=== PATIENT | female | born 1990 | race American Indian/Alaskan Native ===

== ENCOUNTER 2017-08-25 06:59 | Emergency (ER) | payer BC, MEDICAID, OTHER ==
[2017-08-25 06:59] VITALS: BMI 33.2
[2017-08-25 07:11] VITALS: BP 132/78; PULSE 84; RESP 16; TEMP 97.8; O2SAT 100
[2017-08-25] MEDS ORDERED: Sodium Chloride 0.9% 1,000 ML IV STA (08:39)
--- NOTE | 2017-08-25 08:52 | ED PDOC ---
HPI: Abdomen Time Seen by Provider: 08/25/17 08:07 Chief Complaint (Nursing): Abdominal Pain Chief Complaint (Provider): Abdominal Pain History Per: Patient History/Exam Limitations: no limitations Onset/Duration Of Symptoms: Days (2 weeks) Current Symptoms Are (Timing): Constant Associated Symptoms: Nausea, Vomiting. denies: Diarrhea, Constipation, Urinary Symptoms Additional Complaint(s): Patient is a 27 y/o female with a past medical history of acid reflux who presents to the ED complaining of constant abdominal pain for 2 weeks, with associated nausea and 4 episodes of non-bloody vomiting. Patient also reports feeling bloated and gassy, but denies any constipation, diarrhea, or genitourinary symptoms. PCP: luis miguel Past Medical History Reviewed: Historical Data, Nursing Documentation, Vital Signs Vital Signs: Last Vital Signs Temp 97.8 F 08/25/17 07:08 Pulse 84 08/25/17 07:08 Resp 16 08/25/17 07:08 BP 132/78 08/25/17 07:08 Pulse Ox 100 08/25/17 10:40 - Medical History PMH: Anemia, Asthma Denies: Chronic Kidney Disease Other PMH: Acid Reflux - Surgical History Surgical History: No Surg Hx - Family History Family History: States: Unknown Family Hx - Social History Current smoker - smoking cessation education provided: No Ex-Smoker (has not smoked in the last 12 months): No Alcohol: None Drugs: Denies - Immunization History Hx Tetanus Toxoid Vaccination: No Hx Influenza Vaccination: No Hx Pneumococcal Vaccination: No - Home Medications Home Medications: Ambulatory Orders Medication Instructions Recorded Ferrous Sulfate [Feosol] 325 mg PO TID #15 tab 08/25/17 Ondansetron ODT [Zofran ODT] 4 mg PO Q8H PRN #20 odt 08/25/17 - Allergies Allergies/Adverse Reactions: Allergies Allergy/AdvReac Type Severity Reaction Status Date / Time kiwi Allergy Verified 08/27/16 18:53 Review of Systems ROS Statement: Except As Marked, All Systems Reviewed And Found Negative Gastrointestinal: Positive for: Nausea, Vomiting, Abdominal Pain, Other (Bloated , gassy). Negative for: Diarrhea, Constipation Genitourinary Female: Negative for: Other (Genitourinary symptoms) Physical Exam - Reviewed Nursing Documentation Reviewed: Yes Vital Signs Reviewed: Yes - Physical Exam Appears: Positive for: No Acute Distress Head Exam: Positive for: ATRAUMATIC, NORMOCEPHALIC Skin: Positive for: Normal Color, Warm, Dry Eye Exam: Positive for: Normal appearance, EOMI, PERRL Neck: Positive for: Normal, Painless ROM, Supple Cardiovascular/Chest: Positive for: Regular Rate, Rhythm. Negative for: Murmur Respiratory: Positive for: Normal Breath Sounds. Negative for: Respiratory Distress Gastrointestinal/Abdominal: Positive for: Tenderness (Mild epigastric). Negative for: Guarding, Rebound Back: Positive for: Normal Inspection. Negative for: L CVA Tenderness, R CVA Tenderness, Vertebral Tenderness Extremity: Positive for: Normal ROM. Negative for: Pedal Edema, Deformity Neurologic/Psych: Positive for: Alert, Oriented (x3). Negative for: Motor/ Sensory Deficits - Laboratory Results Result Diagrams: 08/25/17 09:14 08/25/17 09:14 - ECG O2 Sat by Pulse Oximetry: 100 (RA) Pulse Ox Interpretation: Normal Medical Decision Making Medical Decision Makin:39 Initial Impression: Gastritis, Cholelithiasis Initial Plan: --CMP --Lipase Stat --ED Urine --ED Urine Dipstick --CBC --Sodium Chloride 0.9% IV 1,000 mls/hr --Ondasteron 4 mg IV Stat --Urinalysis --US Abdomen Limited (GB Included) 10:10 US Abdomen Limited Results FINDINGS: LIVER: Measures 15.4 cm in length and appears unremarkable. No focal hepatic mass identified. The main portal vein appears patent with normal directional flow. No intrahepatic bile duct dilatation. GALLBLADDER: No gallstones. No gallbladder wall thickening or pericholecystic edema. Negative sonographic Messina's sign as assessed by the roll tester. COMMON BILE DUCT: Measures 3 mm. PANCREAS: Not well-visualized. RIGHT KIDNEY: Measures 10.1 x 4.2 x 3.6 cm. No obstructing calculus or hydronephrosis identified. AORTA: Limited visualization appears grossly unremarkable. IVC: Limited visualization appears grossly unremarkable. OTHER FINDINGS: None . IMPRESSION: No acute findings identified. Scribe Attestation: Documented by Madhu Fisher, acting as a scribe for Symone Hernandez MD Provider Scribe Attestation: All medical record entries made by the Scribe were at my direction and personally dictated by me. I have reviewed the chart and agree that the record accurately reflects my personal performance of the history, physical exam, medical decision making, and the department course for this patient. I have also personally directed, reviewed, and agree with the discharge instructions and disposition. Disposition - Clinical Impression Clinical Impression: Gastritis, Anemia - Disposition Referrals: Federico CORTES,MD Julian [Medical Doctor] - Disposition: Routine/Home Disposition Time: 10:33 Condition: STABLE Prescriptions: Ferrous Sulfate [Feosol] 325 mg PO TID #15 tab Ondansetron ODT [Zofran ODT] 4 mg PO Q8H PRN #20 odt PRN Reason: Nausea/Vomiting Instructions: Gastritis (ED), Anemia (ED) Forms: [employer] (Romanian)
[2017-08-25 09:27] LABS: ALB/GLOB RATIO 1.1 (1.0-2.1); ALBUMIN 3.9 g/dL (3.5-5.0); ALT/SGPT 43 U/L (9-52); AST/SGOT 21 U/L (14-36); BLOOD UREA NITROGEN 14 mg/dl (7-17); CALCIUM 9.3 mg/dL (8.4-10.2); GFR AFRICAN-AMERICAN > 60; GFR NON-AFRICAN AMERICAN > 60; LIPASE 146 U/L (23-300)
[2017-08-25 09:28] LABS: BASO % 0.1 % (0.0-2.0); EOS % 0.4 % (0.0-4.0); HEMOGLOBIN 10.6 g/dL (12.0-16.0); LYMPH # 2.5 K/uL (1.0-4.3); LYMPH % 30.4 % (20.0-40.0); MEAN CELL VOLUME 67.5 fl (81.0-99.0); MEAN CORPUSCULAR HEMOGLOBIN 21.4 pg (27.0-31.0); MEAN CORPUSCULAR HGB CONC 31.7 g/dL (33.0-37.0); MEAN PLATELET VOLUME 8.4 fl (7.2-11.7); MONO # 0.8 K/uL (0.0-0.8); MONO % 9.6 % (0.0-10.0); NEUT # 4.8 K/uL (1.8-7.0); NEUT % 59.5 % (50.0-75.0); NRBC % 0.1 % (0.0-0.0); RBC 4.94 Mil/uL (3.80-5.20); RED CELL DISTRIBUTION WIDTH 16.5 % (11.5-14.5); WHITE BLOOD COUNT 8.1 K/uL (4.8-10.8)
--- NOTE | 2017-08-25 10:12 | US ---
HISTORY: Epigastric pain, vomiting COMPARISON: None available. TECHNIQUE: Sonographic evaluation of the right upper quadrant of the abdomen. FINDINGS: LIVER: Measures 15.4 cm in length and appears unremarkable. No focal hepatic mass identified. The main portal vein appears patent with normal directional flow. No intrahepatic bile duct dilatation. GALLBLADDER: No gallstones. No gallbladder wall thickening or pericholecystic edema. Negative sonographic Messina's sign as assessed by the drier take off tender. COMMON BILE DUCT: Measures 3 mm. PANCREAS: Not well-visualized. RIGHT KIDNEY: Measures 10.1 x 4.2 x 3.6 cm. No obstructing calculus or hydronephrosis identified. AORTA: Limited visualization appears grossly unremarkable. IVC: Limited visualization appears grossly unremarkable. OTHER FINDINGS: None . IMPRESSION: No acute findings identified.
[2017-08-25 11:35] LABS: SQUAMOUS EPITHIAL 4 /hpf (0-5); URINE BACTERIA RARE (<OCC); URINE BILIRUBIN NEGATIVE (NEGATIVE); URINE BLOOD NEGATIVE (NEGATIVE); URINE CLARITY SLIGHTY-CLOUDY (Clear); URINE COLOR YELLOW (YELLOW); URINE GLUCOSE (UA) NEG (Normal); URINE LEUKOCYTE ESTERASE TRACE Leu/uL (Negative); URINE NITRATE NEGATIVE (NEGATIVE); URINE PROTEIN NEGATIVE (NEGATIVE)
== END 2017-08-25 10:42 | disposition home or self-care (01) ==
LOC: H.ER 06:59
DX: K29.70 Gastritis, unspecified, without bleeding (principal); D64.9 Anemia, unspecified; K21.9 Gastro-esophageal reflux disease without esophagitis; J45.909 Unspecified asthma, uncomplicated
CPT/HCPCS: 76705; 80053; 81003; 81025; 83690; 85025; 96374; 99283; J2405; J7040